=== PATIENT | female | born 1955 | race Two or more races ===

== ENCOUNTER 2020-10-07 18:17 | Inpatient (IN) | payer OTHER ==
[~2020-10-07] VITALS: Ht 162.6 cm; Wt 74.8 kg
[2020-10-07] MEDS ORDERED: SYNTHROID100 MCG (18:35)
[2020-10-23] MEDS ORDERED: LATANOPROST2.5 ML (14:11)
== END 2020-10-25 12:23 | disposition home or self-care (01) | DRG 418 ==
LOC: ER 18:17 → MEDI 10-08 10:06
PROVIDERS: Surgery; ADMIT Internal Medicine; ATTEND Internal Medicine
PROC: 4A033R1 Measurement of Arterial Saturation, Peripheral, Percutaneous Approach (ICD-10-PCS; 2020-10-08)
PROC: 0FJD8ZZ Inspection of Pancreatic Duct, Via Natural or Artificial Opening Endoscopic (ICD-10-PCS; 2020-10-16)
PROC: 0FJB8ZZ Inspection of Hepatobiliary Duct, Via Natural or Artificial Opening Endoscopic (ICD-10-PCS; 2020-10-16)
PROC: 0F798ZZ Dilation of Common Bile Duct, Via Natural or Artificial Opening Endoscopic (ICD-10-PCS; 2020-10-17)
PROC: BF10YZZ Fluoroscopy of Bile Ducts using Other Contrast (ICD-10-PCS; 2020-10-17)
PROC: BF12YZZ Fluoroscopy of Gallbladder using Other Contrast (ICD-10-PCS; 2020-10-19)
PROC: 0FT44ZZ Resection of Gallbladder, Percutaneous Endoscopic Approach (ICD-10-PCS; principal; 2020-10-19 07:00)
DX: K85.10 Biliary acute pancreatitis without necrosis or infection (principal); K80.65 Calculus of gallbladder and bile duct with chronic cholecystitis with obstruction; E86.0 Dehydration; E03.8 Other specified hypothyroidism; E87.6 Hypokalemia; Z20.822 Contact with and (suspected) exposure to COVID-19

== ENCOUNTER 2020-11-23 11:49 | Outpatient (CLI) | payer OTHER | END 2020-11-23 11:55 | disposition home or self-care (01) | LOC: LAB 11:49 | PROVIDERS: ATTEND Radiology Diagnostic Radiology | DX: R22.1 Localized swelling, mass and lump, neck (principal) ==

== ENCOUNTER → 2020-11-23 | Outpatient (CLI) | payer OTHER ==
[~2020-11-23] MED LIST: LATANOPROST2.5 ML; SYNTHROID100 MCG
== END | disposition home or self-care (01) ==
LOC: TOM 11:32
PROVIDERS: ATTEND Internal Medicine
DX: R22.1 Localized swelling, mass and lump, neck (principal); K21.9 Gastro-esophageal reflux disease without esophagitis
CPT/HCPCS: 70491; Q9965

== ENCOUNTER 2022-08-19 16:31 | Outpatient (CLI) | payer OTHER | END 2022-08-19 16:37 | disposition home or self-care (01) | LOC: LAB 16:31 | PROVIDERS: ATTEND Radiology Diagnostic Radiology | DX: R10.30 Lower abdominal pain, unspecified (principal) ==

== ENCOUNTER 2022-08-21 08:05 | Outpatient (CLI) | payer OTHER | END 2022-08-21 08:16 | disposition home or self-care (01) | LOC: RAD 08:05 | PROVIDERS: ATTEND Internal Medicine | DX: R10.30 Lower abdominal pain, unspecified (principal); K57.92 Diverticulitis of intestine, part unspecified, without perforation or abscess without bleeding | CPT/HCPCS: 74177; Q9965 ==

== ENCOUNTER 2023-03-17 09:17 | Outpatient (CLI) | payer OTHER | END 2023-03-17 09:33 | disposition home or self-care (01) | LOC: LAB 09:17 | PROVIDERS: ATTEND Internal Medicine | DX: M35.1 Other overlap syndromes (principal); D64.9 Anemia, unspecified; E11.8 Type 2 diabetes mellitus with unspecified complications; I48.91 Unspecified atrial fibrillation; N39.0 Urinary tract infection, site not specified; E11.9 Type 2 diabetes mellitus without complications; E55.9 Vitamin D deficiency, unspecified; D68.8 Other specified coagulation defects; E78.5 Hyperlipidemia, unspecified; Z88.2 Allergy status to sulfonamides ==

== ENCOUNTER 2023-03-17 10:07 | Outpatient (CLI) | payer OTHER | END 2023-03-17 10:15 | disposition home or self-care (01) | LOC: MRI 10:07 | PROVIDERS: ATTEND Internal Medicine | DX: M54.12 Radiculopathy, cervical region (principal) | CPT/HCPCS: 72141 ==

== ENCOUNTER 2023-04-30 07:13 | Outpatient (CLI) | payer OTHER | END 2023-04-30 07:14 | disposition home or self-care (01) | LOC: NUCLEAR 07:13 | PROVIDERS: ATTEND Internal Medicine | DX: M06.9 Rheumatoid arthritis, unspecified (principal) | CPT/HCPCS: 78315; A9503 ==

== ENCOUNTER → 2023-04-30 10:49 | Outpatient (CLI) | payer OTHER | END | disposition home or self-care (01) | LOC: LAB 10:49 | PROVIDERS: ATTEND Internal Medicine | DX: M06.9 Rheumatoid arthritis, unspecified (principal) ==

== ENCOUNTER 2025-04-04 08:54 | Outpatient (CLI) | payer OTHER ==
[2025-04-04 09:29] LABS: BASO % 0.3 % (0.1-1.2); EOS # 0.17 (0.04-0.54); EOS % 2.3 % (0.7-7.0); LYMPH # 1.55 (1.18-3.74); LYMPH % 21.0 % (19.3-53.1); MEAN PLATELET VOLUME 11.50 fl (9.4-12.4); MONO # 0.46 (0.24-0.82); MONO % 6.2 % (4.7-12.5); NEUT # 5.16 (1.56-6.13); NEUT % 69.9 % (34.0-71.1); RED CELL DISTRIBUTION WIDTH 13.2 % (11.6-14.4)
[2025-04-04 10:05] LABS: INR 1.32
== END 2025-04-04 13:52 | disposition home or self-care (01) ==
LOC: LAB 08:54
PROVIDERS: ATTEND Radiology Diagnostic Radiology
DX: K75.4 Autoimmune hepatitis (principal)

== ENCOUNTER 2025-04-17 11:49 | Emergency (ER) | payer OTHER ==
[~2025-04-17] VITALS: Ht 160 cm; Wt 86.2 kg
[2025-04-17] MEDS ORDERED: 0.9 % SODIUM CHLORIDE 1,000 ML IV STA (14:01)
[2025-04-17 14:29] LABS: BASO % 0.3 % (0.1-1.2); EOS # 0.12 (0.04-0.54); EOS % 1.7 % (0.7-7.0); LYMPH # 1.47 (1.18-3.74); LYMPH % 20.4 % (19.3-53.1); MEAN PLATELET VOLUME 11.00 fl (9.4-12.4); MONO # 0.38 (0.24-0.82); MONO % 5.3 % (4.7-12.5); NEUT # 5.19 (1.56-6.13); NEUT % 71.7 % (34.0-71.1); RED CELL DISTRIBUTION WIDTH 13.0 % (11.6-14.4)
[2025-04-17 15:17] LABS: URINE APPEARANCE Clear; URINE BILIRRUBIN Negative (NEGATIVE); URINE BLOOD Negative; URINE COLOR Yellow; URINE GLUCOSE Negative (NEGATIVE); URINE KETONE Negative (NEGATIVE); URINE LEUKOCYTE Small; URINE NITRATE Negative; URINE PROTEIN Negative (NEGATIVE); URINE UROBILINOGEN 0.2 E.U./dl
[2025-04-17 15:20] LABS: ALT/SGPT 17.0 U/L (12-78); AST/SGOT 13.0 U/L (15-37); BILIRUBIN TOTAL 0.66 mg/dL (0.3-1.2); BUN CREA RATIO 16.0 (7.0-25.0); CREATININE SERUM 0.63 mg/dL (0.55-1.02); GFR 93.15; GLOBULINA 3.3 G/DL (2.4-3.5); GLUCOSE FASTING 98.0 mg/dL (65-100); OSMOLALITY SERUM 286.0 MOSM/KG (275-295)
[2025-04-17 15:21] LABS: URINE BACTERIA 27.6 uL (0.0-1933); URINE EPITHELIAL CELLS 11.5 uL (0.0-38.8); URINE RBC 6.0 uL (0.0-20.8); URINE WBC 66.4 uL (0.0-23.2)
[2025-04-17 15:23] LABS: URINE CAST 0.00 uL (0.0-1.40)
[2025-04-17] MEDS ORDERED: ONDANSETRON HCL 2 MG/ML VIAL IV STA (15:29)
[2025-04-17] MEDS ORDERED: FAMOTIDINE/PF 20 MG/2 ML VIAL IV STA (15:30)
[2025-04-17] MEDS ORDERED: FAMOTIDINE/PF 20 MG/2 ML VIAL ONE (15:33)
[2025-04-17] MEDS ORDERED: ONDANSETRON HCL 2 MG/ML VIAL ONE (15:33)
[2025-04-17] MEDS ORDERED: HYOSCYAMINE SULFATE 0.125 MG TAB.SUBL ONE (21:12)
[2025-04-17] MEDS ORDERED: HYOSCYAMINE SULFATE 0.125 MG TAB.SUBL SL ONE (21:15)
== END 2025-04-17 21:17 | disposition home or self-care (01) ==
LOC: ER 11:49
PROVIDERS: General Practice
DX: K30 Functional dyspepsia (principal); R14.3 Flatulence; Z88.2 Allergy status to sulfonamides; K43.9 Ventral hernia without obstruction or gangrene
CPT/HCPCS: 36415; 74176; 96365; 96366; 99284; J2405; J3490; J7030

== ENCOUNTER 2025-05-17 08:59 | Outpatient (CLI) | payer OTHER | END 2025-05-17 09:07 | disposition home or self-care (01) | LOC: TOM 08:59 | PROVIDERS: ATTEND Internal Medicine | DX: K57.81 Diverticulitis of intestine, part unspecified, with perforation and abscess with bleeding (principal) | CPT/HCPCS: 74177; Q9965 ==